=== PATIENT | female | born 1930 | race Caucasian/White ===

== ENCOUNTER → 2016-12-23 | Outpatient (CLI) | payer MEDICARE, OTHER ==
[~2016-12-23] MED LIST: ASPIR-LOW81 MG PO; LOPRESSOR25 MG PO; MACROBID100 M1 PO; MOTRIN800 MG PO; NEURONTIN400 MG PO; NORCO 325 MG-51 TAB PO; PYRIDIUM200 M1 PO; ZOFRAN4 MG PO
== END | disposition home or self-care (01) ==
LOC: MAMMO 10:52
DX: Z85.3 Personal history of malignant neoplasm of breast (principal)

== ENCOUNTER 2017-03-01 07:18 | Emergency (ER) | payer MEDICARE, OTHER ==
[~2017-03-01] VITALS: Wt 63.5 kg
[2017-03-01 08:41] LABS: BILIRUBIN 1+ (NEGATIVE); BLOOD 2+ (NEGATIVE); CLARITY CLOUDY (CLEAR); COLOR YELLOW (YELLOW); GLUCOSE NEGATIVE (NEGATIVE); KETONE 1+ (NEGATIVE); LEUKO ESTERASE 2+ (NEGATIVE); NITRITE NEGATIVE (NEGATIVE); PH 5.5 (5.0-9.0); PROTEIN TRACE (NEGATIVE); UROBILINOGEN 0.2 E.U./dl (0.2-1.0)
[2017-03-01 08:49] LABS: BACTERIA 2+; RBC 21-30 rbc/hpf (0-2); URINE REFLEX COMMENT YES (NO); WBC TNTC wbc/hpf (0-5)
[2017-03-01] MEDS ORDERED: BACTRIM DS 8001 TA1 PO (10:33)
[2017-03-01] MEDS ORDERED: PYRIDIUM200 M1 PO (10:33)
== END 2017-03-01 10:35 | disposition home or self-care (01) ==
LOC: ED 07:18
PROVIDERS: Emergency Medicine
DX: N39.0 Urinary tract infection, site not specified (principal); Z79.82 Long term (current) use of aspirin

== ENCOUNTER 2017-11-02 19:31 | Inpatient (IN) | payer MEDICARE, OTHER ==
[~2017-11-02] VITALS: Ht 160 cm; Wt 56.5 kg
--- NOTE | ~2017-11-02 | O ---
[place], [place] OPERATIVE NOTE NAME: CLARI NAZARIO UNIT #: [id number] ROOM: 517 DOCTOR: PETE FISHMAN MD BIRTHDATE: [birth year] DOS: 11/02/2017 INDICATIONS: The patient has presented with difficulty in swallowing after a solid food meal and since then water brushing and difficulty to eat. CT scan of the abdomen has been suggestive of a foreign body at the distal esophagus, 1.5 x 1.6 in diameter and distal esophageal thickening, concern. PROCEDURE: Today's procedure part of investigation is panendoscopy. PLAN: For esophageal foreign body removal. PREMEDICATIONS: Propofol. SCOPE: Olympus forward-viewing gastroscope Q10 video. REPORT: After putting the patient in left lateral position and application of lubricant to the scope, the scope was introduced. Thereafter, under direct visualization, I advanced the length of esophagus without difficulty. Thick secretions of the esophagus, which was copious was suctioned out. Foreign body impaction at distal esophagus demonstrated, basket retrieval was attempted, partially removed orally, partially pushed through technique was used and deployed it into the stomach. Photographic series from the event was obtained. Duodenal patency assured, the scope was withdrawn. Distal esophagus was photographed. The patient extubated, tolerated the procedure well. IMPRESSION: Esophageal foreign body, status post basket retrieval. PLAN AND DISCUSSION: The patient is going to stay on ice cream, milk shake, ice water today. No anticoagulants for 48 hours and clinical reassessment. PETE FISHMAN MD CM:OPRECORD:OPERATIVE NOTE [id number] PETE FISHMAN MD 11/03/17 1509 interface
--- NOTE | ~2017-11-02 | CON ---
[place], [place] REPORT OF CONSULTATION NAME: CLARI NAZARIO UNIT #: [id number] ROOM: 517 DOCTOR: PETE FISHMAN MD BIRTHDATE: [birth year] DOS: 11/03/2017 HISTORY OF PRESENT ILLNESS: An 87-year-old patient who has presented with chief complaint of experiencing solid food, dysphagia, subsequently experiencing esophageal foreign body and unableness to swallow. Subsequently, the patient was kept n.p.o. and was admitted through Emergency Room. Her white blood cell was 7.9, H and H of 13 and 41, differential within normal limit. Lactic acid normal. INR 1.0. Comprehensive metabolic panel, GFR normal. Liver function test normal. Lipase normal. Troponin within normal limit. Chest x-ray, no active pathology was identified. Rapid flu study A and B was negative. Urinalysis: No active urine. CT scan of the abdomen and pelvis was organized. A small sliding hiatal hernia, circumferential wall thickening of the distal esophagus was of concern and it was reported 1.5 x 1.6 object at the distal esophagus. Hepatic steatosis, diverticulosis of left colon, and circumferential wall thickening of the sigmoid colon, they were noticed. Comprehensive metabolic panel readdressed. Hemoglobin A1c 5.9. 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 PAST SURGICAL HISTORY: Left mastectomy, splenectomy, hysterectomy, left arm amputation above the elbow. SOCIAL HISTORY: Nonsmoker, nonalcohol consumer. FAMILY HISTORY: Noncontributory. ALLERGIES: No known medications. MEDICATIONS: Medication list has been including aspirin, gabapentin, metoprolol. REVIEW OF SYSTEMS: HEENT: Denies double vision, blurred vision. RESPIRATORY: Denies acute shortness of breath. CARDIOVASCULAR: Denies chest pain. DIGESTIVE SYSTEM: Dysphagia to solid food. PHYSICAL EXAMINATION: VITAL SIGNS: Stable. NEUROLOGIC: Alert, oriented to time, place, and person. NECK: Supple, no thyromegaly. HEENT: Head normocephalic, nontraumatic. Mouth and buccal mucosa benign. NECK: Supple, no thyromegaly, no cervical lymphadenopathy. CHEST: Symmetric anatomy, equal expansion. No wheeze, no rhonchi. HEART: Normal sinus rhythm, no gallop, no murmur. ABDOMEN: Soft. No hepato-organomegaly. Bowel sounds present. No pulsatile mass. EXTREMITIES: No pedal edema. Left arm amputation was noticed. NEUROLOGICAL: Fully alert, oriented to time, place, person. Sensory, motor intact. Cranial nerves 2-12 intact. [place], [place] REPORT OF CONSULTATION NAME: CLARI NAZARIO UNIT #: [id number] ROOM: [facility] DOCTOR: PETE FISHMAN MD BIRTHDATE: [birth year] PLAN AND DISCUSSION: Case discussed with the patient, discussed with the family. We are going to organize an EGD today with concerns of attention to the distal esophagus thickening, ruling out carcinoma versus benign stricture and foreign body. CT scan indicated. Thank you very much indeed. OTHER ADJUNCTIVE DIAGNOSIS: As outlined in paragraph. PETE FISHMAN MD CM:CONSTR:REPORT OF CONSULTATION 1435 11/04/17 0043 interface
[~2017-11-02 19:31] MED LIST changes: +ASPIR LOW81 MG PO; -ASPIR-LOW81 MG PO; +BACTRIM DS 8001 TA1 PO; +ZOFRAN ODT4 MG SL
[2017-11-02 19:36] VITALS: BP 178/88
[2017-11-02 20:30] VITALS: BP 140/84; BP 148/72
[2017-11-02 20:45] VITALS: BP 140/84
[2017-11-02 23:49] VITALS: BP 167/86
[2017-11-03] VITALS (9 sets, daily range): BP systolic 125–160; BP diastolic 55–87
[2017-11-03 01:11] LABS: BILIRUBIN NEGATIVE (NEGATIVE); BLOOD 3+ (NEGATIVE); CLARITY SL CLOUDY (CLEAR); COLOR YELLOW (YELLOW); GLUCOSE NEGATIVE (NEGATIVE); KETONE TRACE (NEGATIVE); LEUKO ESTERASE 2+ (NEGATIVE); NITRITE NEGATIVE (NEGATIVE); SPECIFIC GRAVITY <= 1.005 (1.005-1.030); UROBILINOGEN 0.2 E.U./dl (0.2-1.0)
[2017-11-03 01:17] LABS: BACTERIA 1+
[2017-11-03 07:52] LABS: BASO % 0.4 % (0.0-1.0); EOS # 0.1 10*3/uL (0.0-0.4); EOS % 0.6 % (1.0-4.0); HEMOGLOBIN 13.3 g/dl (12.0-16.0); LYMPH # 1.3 10*3/uL (1.3-4.4); LYMPH % 12.9 % (27.0-41.0); MEAN CELL VOLUME 91.3 fl (81.0-99.0); MEAN CORPUSCULAR HGB 29.6 pg (27.0-31.0); MEAN CORPUSCULAR HGB CONC 32.4 g/dl (33.0-37.0); MEAN PLATELET VOLUME 11.2 fl (9.6-12.3); MONO # 0.4 10*3/uL (0.1-1.0); MONO % 3.7 % (3.0-9.0); NEUT # 8.2 10*3/uL (2.3-7.9); PLATELET COUNT AUTOMATED 289 10*3/uL (130-400); RED BLOOD COUNT 4.49 10*6/uL (4.10-5.10); RED CELL DISTRI WIDTH 13.9 % (0-14.5)
[2017-11-03 08:05] LABS: ALBUMIN 3.4 gm/dl (3.1-4.5); ALKALINE PHOSPHATASE 83 U/L (45-117); BUN 8 mg/dl (7-24); CHLORIDE 110 mmol/L (98-107); CHOLESTEROL 170 mg/dL (<200); CREATININE 0.69 mg/dL (0.55-1.02); FREE T4 0.94 ng/dl (0.76-1.46); HDL CHOLESTEROL 55 mg/dl (40-60); LDL CHOLESTEROL 97 mg/dL (9-159); PHOSPHOROUS 2.5 mg/dL (2.5-4.9); POTASSIUM 3.7 mmol/L (3.5-5.1); SGOT/AST 24 IU/L (3-35); SGPT/ALT 16 U/L (12-78); SODIUM 142 mmol/L (136-145); TOTAL PROTEIN 7.1 gm/dL (6.4-8.2); TRIGLYCERIDES 90 mg/dl (<150); VLDL CHOLESTEROL 18 mg/dL (6-40)
[2017-11-03 08:11] LABS: ACT PARTIAL THROMBO TIME 23.5 SECONDS (20.8-31.5)
[2017-11-03 08:13] LABS: VITAMIN D, 25-HYDROXY 18.9 ng/mL (30-100)
[2017-11-04] VITALS: BP 127/65
[2017-11-04 08:00] VITALS: BP 135/74; BP 138/72
[2017-11-04 12:00] VITALS: BP 136/76
[2017-11-04 14:00] VITALS: BP 155/93
[2017-11-04] MEDS ORDERED: Vitamin D PO (15:30)
== END 2017-11-04 15:48 | disposition home or self-care (01) | DRG 394 ==
LOC: ED 19:31 → 5E 19:50 → EDHOLD 19:50 → 5E 19:55
PROVIDERS: Hospitalist
PROC: 0DC38ZZ Extirpation of Matter from Lower Esophagus, Via Natural or Artificial Opening Endoscopic (ICD-10-PCS; principal; 2017-11-02)
DX: T18.128A Food in esophagus causing other injury, initial encounter (principal); R65.10 Systemic inflammatory response syndrome (SIRS) of non-infectious origin without acute organ dysfunction; R13.10 Dysphagia, unspecified; K76.0 Fatty (change of) liver, not elsewhere classified; K44.9 Diaphragmatic hernia without obstruction or gangrene; K57.30 Diverticulosis of large intestine without perforation or abscess without bleeding; I10 Essential (primary) hypertension; E55.9 Vitamin D deficiency, unspecified; D72.810 Lymphocytopenia; K21.0 Gastro-esophageal reflux disease with esophagitis; Z87.440 Personal history of urinary (tract) infections; Z90.12 Acquired absence of left breast and nipple; Z85.9 Personal history of malignant neoplasm, unspecified; Z90.710 Acquired absence of both cervix and uterus; Z79.82 Long term (current) use of aspirin; Z79.899 Other long term (current) drug therapy; Z90.81 Acquired absence of spleen; Z89.222 Acquired absence of left upper limb above elbow; Z80.9 Family history of malignant neoplasm, unspecified; X58.XXXA Exposure to other specified factors, initial encounter; Y93.89 Activity, other specified; Y92.89 Other specified places as the place of occurrence of the external cause; Y99.8 Other external cause status

== ENCOUNTER → 2017-12-03 | Outpatient (CLI) | payer MEDICARE, OTHER ==
[~2017-12-03] MED LIST changes: +Vitamin D PO
== END | disposition home or self-care (01) ==
LOC: MAMMO 02:27
DX: I74.8 Embolism and thrombosis of other arteries (principal); R92.8 Other abnormal and inconclusive findings on diagnostic imaging of breast; I10 Essential (primary) hypertension

== ENCOUNTER → 2018-11-19 | Outpatient (CLI) | payer MEDICARE, OTHER | END | disposition home or self-care (01) | LOC: MAMMO 08:55 | DX: C50.819 Malignant neoplasm of overlapping sites of unspecified female breast (principal); Z85.3 Personal history of malignant neoplasm of breast ==

== ENCOUNTER → 2019-09-07 | Outpatient (CLI) | payer MEDICARE, OTHER | END | disposition home or self-care (01) | LOC: CT 10:56 | DX: K57.90 Diverticulosis of intestine, part unspecified, without perforation or abscess without bleeding (principal); K76.89 Other specified diseases of liver; N28.1 Cyst of kidney, acquired ==

== ENCOUNTER 2019-12-02 07:07 | Inpatient (IN) | payer MEDICARE, OTHER ==
[~2019-12-02] VITALS: Ht 152.4 cm; Wt 52.8 kg
[2019-12-02 07:13] VITALS: BP 135/78
--- NOTE | 2019-12-02 07:28 | NUR ---
PATIENT DENIES WOUNDS A&OX4.
[2019-12-02 07:58] LABS: BASO % 0.1 % (0.0-1.0); EOS % 0.1 % (1.0-4.0); HEMATOCRIT 42.8 % (37.0-47.0); HEMOGLOBIN 13.7 g/dl (12.0-16.0); LYMPH # 0.9 10*3/uL (1.3-4.4); MEAN CELL VOLUME 90.3 fl (81.0-99.0); MEAN CORPUSCULAR HGB 28.9 pg (27.0-31.0); MEAN PLATELET VOLUME 9.6 fl (9.6-12.3); MONO # 0.5 10*3/uL (0.1-1.0); MONO % 3.6 % (3.0-9.0); NEUT # 13.6 10*3/uL (2.3-7.9); NEUT % 89.8 % (47.0-73.0); PLATELET COUNT AUTOMATED 450 10*3/uL (130-400); RED BLOOD COUNT 4.74 10*6/uL (4.10-5.10); RED CELL DISTRI WIDTH 14.1 % (0-14.5); WHITE BLOOD COUNT 15.2 10*3/uL (4.8-10.8)
[2019-12-02 08:12] LABS: ACT PARTIAL THROMBO TIME 23.4 SECONDS (20.0-32.1); INTERNATIONAL NORM RATIO 0.9 (2.0-3.5)
[2019-12-02 08:16] LABS: ALBUMIN 3.3 gm/dl (3.1-4.5); ALKALINE PHOSPHATASE 83 U/L (45-117); BUN 13 mg/dl (7-24); CHLORIDE 106 mmol/L (98-107); LIPASE 178 U/L (73-393); POTASSIUM 3.5 mmol/L (3.5-5.1); SGOT/AST 13 IU/L (3-35); SGPT/ALT 14 U/L (12-78); SODIUM 142 mmol/L (136-145); TOTAL PROTEIN 6.9 gm/dL (6.4-8.2)
--- NOTE | 2019-12-02 10:20 | NUR ---
PATIENT TAKEN TO FLOOR AT THIS TIME BY THIS NURSE.
[2019-12-02 10:30] VITALS: BP 152/86
--- NOTE | 2019-12-02 10:30 | NUR ---
Time: 1029 A 89 year old female admitted to 5E under services of JYOTSNA HERNÁNDEZ DO, Pt. arrived via stretcher from ER. Chief complaint: nausea/vomiting. GIACOMO REYNOLDS
--- NOTE | 2019-12-02 10:35 | NUR ---
PATIENT TO GO TO THE RESTROOM. URINATED. UA HAS BEEN SENT. PATIENT IS NOW BEING TRANSPORTED TO 5TH FLOOR BY THIS NURSE.
[2019-12-02 10:46] LABS: BILIRUBIN NEGATIVE (NEGATIVE); BLOOD TRACE-INTACT (NEGATIVE); CLARITY SL CLOUDY (CLEAR); COLOR YELLOW (YELLOW); GLUCOSE NEGATIVE (NEGATIVE); KETONE NEGATIVE (NEGATIVE); LEUKO ESTERASE 2+ (NEGATIVE); NITRITE NEGATIVE (NEGATIVE); PH 8.5 (5.0-9.0); RBC 0-2 rbc/hpf (0-2); UROBILINOGEN 0.2 E.U./dl (0.2-1.0)
--- NOTE | 2019-12-02 11:00 | NUR ---
PATIENT WOULD PERIODICALLY GO DOWN TO 88% ON ROOM AIR. DR PAGAN NOTIFIED. STATES OK AND NOT TO START O2 ON PATIENT. ADMITTING NURSE WAS NOTIFIED.
--- NOTE | 2019-12-02 11:10 | NUR ---
TORPEDOMAN'S MATE printed and faxed update informaion to [facility] where patient will discharge to after completion of stabalization. TORPEDOMAN'S MATE will provide any services or followup throughout duration of stay in [facility].
--- NOTE | 2019-12-02 11:26 | NUR ---
DR. ARDON AWARE OF CONSULT AND IS HERE TO SEE PATIENT.
[2019-12-02 12:00] VITALS: BP 151/95
--- NOTE | 2019-12-02 12:40 | NUR ---
PO ZOFRAN GIVEN/.
--- NOTE | 2019-12-02 14:42 | NUR ---
PATIENT FAMILY REQUESTING DOCTOR TO CALL [facility] AND SPEAK WITH THEIR MOTHERS DOCTOR. ALSO REQUESTING CT SCAN. DR. SNIDER AWARE AND IN TO SEE PATIENT AND FAMILY.
--- NOTE | 2019-12-02 14:53 | NUR ---
PO TUMS GIVEN EARLIER ZOFRAN AND PROTONIX HELPED A LITTLE. STILL HEART BURN AND NAUSEA.
[2019-12-02 16:00] VITALS: BP 151/86
--- NOTE | 2019-12-02 16:49 | NUR ---
IV ZOFRAN GIVEN ONE TIME ORDER.
--- NOTE | 2019-12-02 18:00 | NUR ---
ANDREA EARLIER HELPED A LITTLE.
--- NOTE | 2019-12-02 18:53 | NUR ---
PATIENT HAD GREEN EMESIS 200CC.
[2019-12-02 20:00] VITALS: BP 132/52
[2019-12-03] VITALS: BP 128/68
--- NOTE | 2019-12-03 | NUR ---
PATIENT HAD A LARGE MED-DK BROWN STOOL OF PUDDING CONSISTANCY. COLOSTOMY BAG CHANGED AT THIS TIME.
--- NOTE | 2019-12-03 02:12 | NUR ---
24 HR chart check completed.
[2019-12-03 06:27] LABS: BASO % 0.4 % (0.0-1.0); EOS # 0.3 10*3/uL (0.0-0.4); HEMATOCRIT 36.2 % (37.0-47.0); HEMOGLOBIN 11.4 g/dl (12.0-16.0); LYMPH # 1.3 10*3/uL (1.3-4.4); LYMPH % 14.5 % (27.0-41.0); MEAN CELL VOLUME 92.8 fl (81.0-99.0); MEAN CORPUSCULAR HGB 29.2 pg (27.0-31.0); MEAN CORPUSCULAR HGB CONC 31.5 g/dl (33.0-37.0); MEAN PLATELET VOLUME 9.8 fl (9.6-12.3); MONO # 0.6 10*3/uL (0.1-1.0); MONO % 6.1 % (3.0-9.0); NEUT # 6.8 10*3/uL (2.3-7.9); NEUT % 75.8 % (47.0-73.0); PLATELET COUNT AUTOMATED 367 10*3/uL (130-400); RED CELL DISTRI WIDTH 14.3 % (0-14.5)
[2019-12-03 06:43] LABS: ACT PARTIAL THROMBO TIME 24.3 SECONDS (20.0-32.1)
[2019-12-03 07:08] LABS: ALBUMIN 2.8 gm/dl (3.1-4.5); BUN 16 mg/dl (7-24); CHLORIDE 114 mmol/L (98-107); CREATININE 0.69 mg/dL (0.55-1.02); POTASSIUM 3.4 mmol/L (3.5-5.1); SGOT/AST 12 IU/L (3-35); SODIUM 146 mmol/L (136-145); TOTAL PROTEIN 5.7 gm/dL (6.4-8.2)
[2019-12-03 07:09] LABS: ALKALINE PHOSPHATASE 62 U/L (45-117); SGPT/ALT 13 U/L (12-78)
[2019-12-03 07:17] LABS: THYROID STIM HORMONE (HS) 0.998 uIU/ml (0.358-4.75)
[2019-12-03 08:00] VITALS: BP 143/79
--- NOTE | 2019-12-03 08:58 | NUR ---
Face to face encounter with . Treatment plan and med list, and labs were reviewed. See new orders. See labs.
--- NOTE | 2019-12-03 09:00 | NUR ---
[facility] in to see patient. She is currently short term at [facility] and plans to return there upon discharge. She states she is independent in his ADLs and ambulation. When medically stable she will be discharged to [facility]. She states either her daughter or [facility] van can provide transportation on discharge. strategic planner following.
--- NOTE | 2019-12-03 10:30 | NUR ---
Occupational Therapy evaluation completed on 5 with full evaluation to follow. Recommend occupational therapy per plan of care to address safety in mobility in ADL,energy conservation/work simplification education, standing tolerance for ADLs and SNF upon discharge to enable return home at indep level. Thank you for this referral. Conchis Morse OTR/l
--- NOTE | 2019-12-03 11:30 | NUR ---
Patient tolerated full liquid diet. No c/o N/V or GI upset.
--- NOTE | 2019-12-03 11:37 | NUR ---
PHYSICAL THERAPY [place] completed moderate level of complexity recomend return to rehab after discharge full report to follow Genoveva Peacock PT
[2019-12-03 12:00] VITALS: BP 146/85
--- NOTE | 2019-12-03 14:10 | NUR ---
OT NOTE Pt was seen this P.M. 1:1 for 12 minute OT session. Upon arrival pt was supine in bed. Pt identified by name and and had no complaints at this time. Pt transferred supine to sit EOB with SBA. Sit to stand completed from bed level with CGA. Functional mobility was then completed to the bathroom with CGA. There she transferred on/off standard commode with CGA for safety. Functional mobility was then completed around the room with CGA, challenged pt's dynamic standing tolerance needed for increased I and enhanced safety pt was able to tolerate aprox 8 minutes before sitting due to fatigue. Pt was left supine in bed with call light in hand, tray table in place, and bed alarm activated for safety. Continue with rec D/C plan to SNF. ELLIOTT Rodriguez
--- NOTE | 2019-12-03 14:10 | NUR ---
PHYSICAL THERAPY TREATMENT TIME: 1:55 PM - 2;10 PM 15 MINUTES Patient presented to therapy in supine with head of bed elevated and report of having no pain or other complaints. Patient gives informed consent for treatment. Patient was identified by name and on wristband. Patient performed bed mobility with SBA. Patient transferred SIT TO STAND from EOB with CGA- MIN A X 1. Patient ambulated with CGA X 1-MIN A X 1 and no assistive device with other therapist manuvering the IV POLE for 60' x 1 and then again, for 50' x 1. Patient had one standing rest break at the end of the first 60' x 1. Patient transferred back to supine in bed with SBA. Patient was left in supine in bed with head of be elevated, bed alarm activated, and two daughters visitng in room with patient. Patient was 1:1 with this [employer] for 15 minutes total. CHAD LOVING [employer]
--- NOTE | 2019-12-03 15:30 | NUR ---
Patient tolerated regular diet. No complaints.
[2019-12-03 16:00] VITALS: BP 121/65
[2019-12-03 20:00] VITALS: BP 119/64
[2019-12-04] VITALS: BP 131/69
--- NOTE | 2019-12-04 04:51 | NUR ---
24 HR chart check completed.
[2019-12-04 06:36] LABS: BUN 10 mg/dl (7-24); CHLORIDE 112 mmol/L (98-107); POTASSIUM 3.2 mmol/L (3.5-5.1); SODIUM 146 mmol/L (136-145)
[2019-12-04 08:00] VITALS: BP 135/71
[2019-12-04 12:00] VITALS: BP 117/75
--- NOTE | 2019-12-04 12:13 | NUR ---
PT AMBULATED THROUGH HALLWAYS WITH STANDBY ASSIST TO VISIT HER IN 532. PT TOLERATED WELL. VOICES NO OTHER NEEDS AT THIS TIME. ADVISED PT TO ORDER LUNCH. I WOULD THEN BRING IT TO 532 FOR HER TO EAT WITH LUNCH . CALL LIGHT IN REACH.
[2019-12-04 16:00] VITALS: BP 119/72
[2019-12-04 20:00] VITALS: BP 150/78
--- NOTE | 2019-12-04 20:38 | NUR ---
PATIENT RESTING COMFORTABLY IN BED. PATIENT DENIES ANY PAIN, DISCOMFORT OR SHORTNESS OF BREATHE AT THIS TIME. PATIENT STATES THEY ARE CONCERNED ABOUT NOT HAVING A BOWEL MOVEMENT FOR A FEW DAYS. PATIENT REPORTS FLATULENCE AND BOWEL SOUNDS ARE NORMOACTIVE UP TO COLOSTOMY SITE. PATIENT IS ABLE TO AMBULATE W/O ASSIST. INCREASED FLUID INTAKE AND AMBULATION ENCOURAGE T/O ASSESSMENT. CALL LIGHT WITHIN REACH. SEE ASSESSMENT.
[2019-12-05] VITALS: BP 126/64
--- NOTE | 2019-12-05 00:15 | NUR ---
IV ZOFRAN ADMINISTERED TO PATIENT AND IV SITE WAS FOUND TO BE LEAKING DURING ADMINISTRATION. MEDICATION WAS NOT EFFECTIVE AND IV SITE NO LONGER PATENT UPON FLUSHING. PATIENT DOESN'T WANT ANOTHER IV SITE. WILL ASSESS FOR MEDICATION EFFCTIVENESS.
--- NOTE | 2019-12-05 01:36 | NUR ---
PATIENT STILL FEELING NAUSEOUS AT THIS TIME. ZOFRAN SWITCH TO PO FORM SINCE PATIENT DOES NOT WANT ANOTHER IV.
[2019-12-05 08:00] VITALS: BP 131/78
--- NOTE | 2019-12-05 10:09 | NUR ---
LARGE LIQUID BM TODAY. COMPLETE CHANGE TO COLOSTOMY DONE. BED LINENS CHANGED. STATES ZOFRAN ODT HELPED. BUT STILL HAS SOME "LINGERING NAUSEA". DENIES FURTHER MEDS TO HELP. CALL LIGHT IN REACH. SITTING ON SIDE OF BED EATING BREAKFAST.
[2019-12-05 12:00] VITALS: BP 114/70
[2019-12-05] MEDS ORDERED: ONDANSETRON4 MG SL (12:58)
[2019-12-05] MEDS ORDERED: NEURONTIN400 MG PO (13:01)
--- NOTE | 2019-12-05 15:09 | NUR ---
NURSE TO NURSE GIVEN TO RADHA AT [facility].
--- NOTE | 2019-12-05 15:10 | NUR ---
Discharge instructions reviewed with patient/family. Patient receptive and verbalizes understanding. Follow-up care arranged. Written instructions given to patient/family. CARLOS EDUARDO OLSON
--- NOTE | 2019-12-06 07:35 | NUR ---
PHYSICAL THERAPY CO-SIGN I approve of the Physical Therapy notes written above. Genoveva Peacock PT
--- NOTE | 2019-12-06 07:40 | NUR ---
OCCUPATIONAL THERAPY CO-SIGN I approve of the Occupational Therapy notes written above. MARLEEN DURAN, OTR/L
== END 2019-12-05 15:13 | disposition other institution (70) | DRG 389 ==
LOC: ED → EDHOLD 09:56 → 5E 09:56
PROVIDERS: Internal Medicine; ADMIT Internal Medicine
DX: K56.600 Partial intestinal obstruction, unspecified as to cause (principal); E44.1 Mild protein-calorie malnutrition; R65.10 Systemic inflammatory response syndrome (SIRS) of non-infectious origin without acute organ dysfunction; K57.90 Diverticulosis of intestine, part unspecified, without perforation or abscess without bleeding; R00.0 Tachycardia, unspecified; D72.829 Elevated white blood cell count, unspecified; D47.3 Essential (hemorrhagic) thrombocythemia; R73.9 Hyperglycemia, unspecified; E87.8 Other disorders of electrolyte and fluid balance, not elsewhere classified; K21.9 Gastro-esophageal reflux disease without esophagitis; I10 Essential (primary) hypertension; K76.0 Fatty (change of) liver, not elsewhere classified; E55.9 Vitamin D deficiency, unspecified; E87.6 Hypokalemia; D64.9 Anemia, unspecified; Z93.3 Colostomy status; Z85.038 Personal history of other malignant neoplasm of large intestine; Z85.42 Personal history of malignant neoplasm of other parts of uterus; Z90.10 Acquired absence of unspecified breast and nipple; Z90.710 Acquired absence of both cervix and uterus; Z84.89 Family history of other specified conditions; Z82.3 Family history of stroke; Z79.82 Long term (current) use of aspirin; Z79.899 Other long term (current) drug therapy; Z90.49 Acquired absence of other specified parts of digestive tract; Z68.22 Body mass index [BMI] 22.0-22.9, adult

== ENCOUNTER → 2020-06-09 | Outpatient (CLI) | payer MEDICARE, OTHER ==
[~2020-06-09] MED LIST changes: +ONDANSETRON4 MG SL
== END | disposition home or self-care (01) ==
LOC: LAB 08:58 → CT 08:58
PROVIDERS: ATTEND Family Medicine
DX: I25.10 Atherosclerotic heart disease of native coronary artery without angina pectoris (principal); I77.1 Stricture of artery; I70.0 Atherosclerosis of aorta; N28.1 Cyst of kidney, acquired; N28.89 Other specified disorders of kidney and ureter; K76.89 Other specified diseases of liver; Z93.3 Colostomy status; Z90.12 Acquired absence of left breast and nipple

== ENCOUNTER → 2021-05-17 | Outpatient (CLI) | payer MEDICARE, OTHER | END | disposition home or self-care (01) | LOC: CT 09:47 | PROVIDERS: ATTEND Family Medicine | DX: N20.0 Calculus of kidney (principal); J98.11 Atelectasis; N28.1 Cyst of kidney, acquired; K57.30 Diverticulosis of large intestine without perforation or abscess without bleeding; M43.16 Spondylolisthesis, lumbar region; Z90.49 Acquired absence of other specified parts of digestive tract ==